=== PATIENT | male | born 2000 | race African-American/Black ===

== ENCOUNTER 2025-01-23 15:14 | Emergency (ER) | payer MEDICAID ==
[~2025-01-23] VITALS: Ht 172.7 cm; Wt 77.3 kg
[2025-01-23 15:26] VITALS: TEMP 97.9
[2025-01-23] MEDS ORDERED: OXYC-490 PO (17:24)
[2025-01-23 18:23] VITALS: BP 119/63; PULSE 77; RESP 16; O2SAT 100
== END 2025-01-23 18:30 | disposition home or self-care (01) ==
LOC: EMS 15:14
DX: S83.8X2A Sprain of other specified parts of left knee, initial encounter (principal); Z98.890 Other specified postprocedural states; X58.XXXA Exposure to other specified factors, initial encounter; Y93.89 Activity, other specified; Y92.89 Other specified places as the place of occurrence of the external cause; Y99.8 Other external cause status
CPT/HCPCS: 99283